=== PATIENT | male | born 2000 | race Caucasian/White ===

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

== ENCOUNTER → 2018-01-03 | Outpatient (CLI) | payer BC | LOC: BMCIMAGING 14:50 | PROVIDERS: ATTEND Family Medicine | DX: S99.921A Unspecified injury of right foot, initial encounter (principal); Y93.64 Activity, baseball ==

== ENCOUNTER 2018-02-26 12:10 | Emergency (ER) | payer BC ==
--- NOTE | 2018-02-26 12:23 | EDPHY ---
H & P Stated Complaint: cp with hx pericarditis a few months ago Time Seen by Provider: 02/26/18 12:22 - Personal History Current Tetanus/Diphtheria Vaccine: Yes - Medical/Surgical History Hx Asthma: No Hx Chronic Respiratory Disease: No Hx Diabetes: No Hx Cardiac Disease: Yes Hx Renal Disease: No Hx Cirrhosis: No Hx Alcoholism: No Hx HIV/AIDS: No Hx Splenectomy or Spleen Trauma: No Other PMH: Mitral valve prolapse, pericarditis. spontaneous pneumothorax, psoriasis - Social History Smoking Status: Never smoked Constitutional: Initial Vital Signs Temperature (C) 36.7 C 02/26/18 12:13 Heart Rate 79 02/26/18 12:13 Respiratory Rate 18 02/26/18 12:13 Blood Pressure 121/79 H 02/26/18 12:13 O2 Sat (%) 96 02/26/18 12:13 O2 Delivery Mode Room Air Allergies/Adverse Reactions: No Known Allergies Allergy (Verified 02/26/18 12:12) Home Medications: Medication Instructions Recorded Colchicine 0.6 mg PO BID #60 capsule 02/26/18 Ibuprofen [Motrin] 800 mg PO Q8 #90 tab 02/26/18 Medical Decision Making ED Course/Re-evaluation: CHIEF COMPLAINT: Chest pain HISTORY OF PRESENT ILLNESS: This patient is a 18 year old male with history of pericarditis complaining of chest pain. He has had 3 other episodes. To the episodes followed a strep infection but the last episode had no known precursor and this episode has no identifiable precursor. This patient developed symptoms 2 or 3 days ago. He does have an appoint with his Cardiology at the [facility] but not for 3 more days. He has been treated with everything from ibuprofen to colchicine to steroids at 1 point. He denies any lightheadedness or syncope. Denies any nausea vomiting. He denies any other symptomatology at this time. He states that he has been admitted before for this but this time the symptoms are not nearly as bad he came her early. REVIEW OF SYSTEMS: A 10 point review of systems was performed and is negative with the exception of the elements mentioned in the history of present illness. PHYSICAL EXAM: HR, BP, O2 Sat, RR. Temp noted General Appearance: Alert, well hydrated, appropriate, and non-toxic appearing. Head: Atraumatic without scalp tenderness or obvious injury Eyes: Pupils equal, round, reactive to light and accommodation, EOMI, no trauma , no injection. Ears: Clear bilaterally, no perforation, normal landmarks Nose: Atraumatic, no rhinorrhea, clear. Throat: There is no erythema or exudates, no lesions, normal tonsils, mucus membranes moist. Neck: Supple, 2+ carotid upstroke, nontender, no lymphadenopathy. Respiratory: No retractions, no distress, no wheezes, and no accessory muscle use. Lungs are clear to auscultation bilaterally. Cardiovascular: Regular rate and rhythm, no murmurs, rubs, or gallops. Bilateral carotid, radial, dorsalis pedis, and posterior tibial pulses intact. Good capillary refill all extremities. Gastrointestinal: Abdomen is soft, nontender, non-distended, no masses, no rebound, no guarding, no peritoneal signs. Musculoskeletal: Normal active ROM of all extremities, atraumatic. Neurological: Alert, appropriate, and interactive. The patient has normal DTRs and non-focal cranial nerves, motor, sensory, and cerebellar exam. Skin: No rashes, good turgor, no nodules on palpation. Past medical history: Mitral valve prolapse, pericarditis, spontaneous pneumothorax, psoriasis Past surgical history: Noncontributory Family history: Noncontributory Social history: Single, student, does not abuse tobacco drugs or alcohol DIAGNOSTICS/PROCEDURES/CRITICAL CARE TIME: The 12 lead EKG was interpreted by myself. See hard copy and/or "tracemaster" electronic copy for interpretation.: Diffuse ST elevation representing either early repolarization or pericarditis. Sinus mechanism, normal intervals DIFFERENTIAL DIAGNOSIS: The differential diagnosis for the patient's chest pain included but was not limited to pericarditis, myocarditis, myocardial ischemia, pulmonary embolus, chest wall pain, pleural inflammation, and pulmonary infectious causes. MEDICAL DECISION MAKING: This patient has classic story and symptoms for pericarditis. He has an EKG consistent with pericarditis. I am waiting for troponin and D-dimer. I have given him 800 mg of ibuprofen and 1.2 mg of colchicine to start. He will be discharged on 0.6 mg of colchicine daily and 800 mg of ibuprofen 3 times a day and he will follow up with cardiology in 3 days. He will return here if he gets any worse. Laboratory studies are unremarkable. - Data Points Laboratory Results: 02/26/18 02/26/18 12:35 12:35 D-Dimer Pending Troponin I < 0.012 ng/mL ng/mL (0.000-0.034) Medications Given: Discontinued Medications Colchicine (Colchicine) 1.2 mg PO EDNOW ONE Stop: 02/26/18 12:48 Last Admin: 02/26/18 12:53 Dose: 1.2 mg Ibuprofen (Motrin) 800 mg PO EDNOW ONE Stop: 02/26/18 12:49 Last Admin: 02/26/18 12:53 Dose: 800 mg Departure - Departure Disposition: Home, Routine, Self-Care Clinical Impression: Pericarditis Qualifiers: Pericarditis type: idiopathic Chronicity: acute Qualified Code(s): I30.0 - Acute nonspecific idiopathic pericarditis Condition: Good Instructions: Acute Pericarditis (ED) Referrals: Jose Nguyen MD [Medical Doctor] - As per Instructions Bernabe Kothari MD [Medical Doctor] - As per Instructions Prescriptions: Colchicine 0.6 mg PO BID #60 capsule Ibuprofen [Motrin] 800 mg PO Q8 #90 tab Report Scribed for: Osei Martines Report Scribed by: Mackenzie Trevino Date of Report: 02/26/18 Time of Report: 12:27
--- NOTE | 2018-02-26 12:25 | CPEKG ---
Heart Rate: 80 RR Interval: 750 P-R Interval: 140 QRSD Interval: 84 QT Interval: 372 QTC Interval: 430 P [place]: 37 QRS [place]: 83 T Wave [place]: 61 EKG Severity - NORMAL ECG - EKG Impression: SINUS RHYTHM EKG Impression: ST ELEV, PROBABLE NORMAL EARLY REPOL PATTERN Electronically Signed By: Osei Martines 26-Feb-2018 13:51:28
[2018-02-26] MEDS ORDERED: COLCHICINE 0.6 MG CAP/TAB PO ONE (12:47)
[2018-02-26] MEDS ORDERED: IBUPROFEN 800 MG TAB PO ONE (12:48)
[2018-02-26 13:53] VITALS: BP 133/71
== END 2018-02-26 13:51 | disposition home or self-care (01) ==
DX: I30.0 Acute nonspecific idiopathic pericarditis (principal)

== ENCOUNTER → 2018-10-28 | Outpatient (CLI) | payer BC | LOC: BMCIMAGING 13:19 | PROVIDERS: ATTEND Physician Assistant Medical | DX: R05 Cough (principal) ==